=== PATIENT | female | born 1995 | race Caucasian/White ===

== ENCOUNTER → 2019-06-05 | Outpatient (CLI) | payer OTHER ==
--- NOTE | 2019-06-05 14:53 | CT ---
EXAMINATION TYPE: CT abdomen pelvis wo con DATE OF EXAM: 06/05/2019 COMPARISON: None HISTORY: 23-year-old female left flank pain CT DLP: 797 mGycm. Automated exposure control for dose reduction was used. TECHNIQUE: Contiguous axial scanning of the abdomen and pelvis without IV contrast. Coronal and sagit abel reconstructions performed. FINDINGS: Heart normal size without pericardial effusion. Lung bases clear without pleural effusion. Noncontrast appearance of the liver, adrenal glands, spleen, and pancreas show no gross abnormality. Cholecystectomy clips. No nephrolithiasis or hydronephrosis. No suspicious ureteral calculus is identified. No dilated small bowel, free fluid, or free air. No mesenteric or retroperitoneal lymphadenopathy. Some surgical material along the cecum suggest prior appendectomy. Correlate clinically. Moderate sto ol burden. Bladder is urine distended. An IUD is present. Both limbs of the IUD appear unusually positioned jordan cially the right-sided limb which extends anteriorly nearly to the serosal surface. The left limb is directed posteriorly with only 3 mm the intervening myometrium between the tip and serosal surface. B oth ovaries are visualized with prominent follicular change. No abnormal fluid collection. Some promi nent but nonenlarged inguinal lymph nodes measure up to 1.2 cm. Bones: No osseous destructive process. Mild degenerative disc disease L5-S1. IMPRESSION: 1. No nephrolithiasis or hydronephrosis. 2. An IUD is present. Both side arms of the IUD have unusual positioning. Consider pelvic ultrasound to further evaluate possible migration and perforation into the myometrium. 3. Moderate stool burden.
== END | disposition home or self-care (01) ==
LOC: RADCTMAIN 13:55
PROVIDERS: ATTEND Family Medicine
DX: R10.812 Left upper quadrant abdominal tenderness (principal); R10.9 Unspecified abdominal pain; Z97.5 Presence of (intrauterine) contraceptive device
CPT/HCPCS: 74176

== ENCOUNTER → 2019-11-21 | Outpatient (CLI) | payer OTHER ==
--- NOTE | 2019-11-21 14:04 | CT ---
EXAMINATION TYPE: CT soft tissue neck wo con DATE OF EXAM: 11/21/2019 COMPARISON: None. HISTORY: swelling and pain post dog bite [address] DLP: 308.3 mGycm Automated exposure control for dose reduction was used. FINDINGS: Lack of IV contrast exam suboptimal as limits ability to assess mucosal and 4 subcentimeter neck roselyn opathy. Airway grossly patent. Thyroid gland within normal limits. Lung apices clear. Parotid and submandibular glands are symmetric and thought within normal limits. Mild ill-defined fluid and fat stranding right submandibular level with [id number] adjacent sof t tissue swelling axial image 42 for reference. The left side. No well-formed fluid collection or abs cess is present. Nasal septum is deviated to right of midline. Paranasal sinuses are clear. Visualized portion of brain parenchyma is unremarkable. No acute facial bone fracture is seen. IMPRESSION: Mild inflammatory change right submandibular level without well-formed fluid collection o r drainable abscess. Airway noted patent.
== END | disposition home or self-care (01) ==
LOC: RADCTMAIN 13:30
PROVIDERS: ATTEND Family Medicine
DX: S01.83XD Puncture wound without foreign body of other part of head, subsequent encounter (principal); W54.0XXD Bitten by dog, subsequent encounter
CPT/HCPCS: 70490

== ENCOUNTER → 2020-08-21 | Outpatient (CLI) | payer BC ==
--- NOTE | 2020-08-21 12:54 | XR ---
EXAMINATION TYPE: XR lumbosacral spine min 4V DATE OF EXAM: 08/21/2020 CLINICAL HISTORY: pain COMPARISON: NONE TECHNIQUE: Frontal, lateral, and oblique images of the lumbar spine are obtained. FINDINGS: There are 5 lumbar type vertebral bodies identified. The lumbar spine shows satisfactory alignment without evidence of acute fracture or dislocation. Vertebral body heights are within normal limits. Disc spaces are well preserved. The overlying soft tissue appears unremarkable. IMPRESSION: No acute fracture or dislocation is seen in the lumbar spine.ICD 10 NO FRACTURE, INITIAL EVALUATION
--- NOTE | 2020-08-21 12:55 | XR ---
EXAMINATION TYPE: XR thoracic spine complete DATE OF EXAM: 08/21/2020 CLINICAL HISTORY: pain TECHNIQUE: Frontal, lateral, and swimmer's view of thoracic spine are obtained. COMPARISON: None. FINDINGS: Thoracic spine show satisfactory alignment without evidence of acute fracture or dislocatio n. Vertebral body heights are preserved. Disc spaces are well preserved. Visualized ribs are unrem arkable. IMPRESSION: No acute fracture or dislocation is seen in the thoracic spine. ICD 10 NO FRACTURE, INIT IAL EVALUATION
== END | disposition home or self-care (01) ==
LOC: RADXRMAIN 12:01
PROVIDERS: ATTEND Physician Assistant Medical
DX: M54.6 Pain in thoracic spine (principal); M54.42 Lumbago with sciatica, left side
CPT/HCPCS: 72072; 72110

== ENCOUNTER → 2020-09-21 | Outpatient (CLI) | payer BC ==
--- NOTE | 2020-09-21 14:29 | MR ---
EXAMINATION TYPE: MR lumbar spine wo con DATE OF EXAM: 09/21/2020 12:51 PM COMPARISON: NONE HISTORY: Back pain Multiplanar, MultiSpin echo imaging of the lumbar spine was performed. L1-L2: Normal disc appearance without desiccation. No herniation, protrusion or disc bulging. No ca nal stenosis is present. Foramina are patent bilaterally. L2-L3: Normal disc appearance without desiccation. No herniation, protrusion or disc bulging. No ca nal stenosis is present. Foramina are patent bilaterally. L3-L4: Normal disc appearance without desiccation. No herniation, protrusion or disc bulging. No ca nal stenosis is present. Foramina are patent bilaterally. L4-L5: Normal disc appearance without desiccation. No herniation, protrusion or disc bulging. No ca nal stenosis is present. Foramina are patent bilaterally. L5-S1: Normal disc appearance without desiccation. No herniation, protrusion or disc bulging. No ca nal stenosis is present. Foramina are patent bilaterally. Lumbar segments are intact. No paraspinal masses are identified. Conus medullaris has a normal appe arance. IMPRESSION: 1. Normal evaluation.
== END | disposition home or self-care (01) ==
LOC: RADMRIMAIN 12:08
PROVIDERS: ATTEND Physician Assistant Medical
DX: M54.42 Lumbago with sciatica, left side (principal)
CPT/HCPCS: 72148

== ENCOUNTER 2021-10-30 13:42 | Emergency (ER) | payer BC ==
[2021-10-30] MEDS ORDERED: HYDROmorphone 0.5 MG/0.5 ML SYRINGE IVP STA ×2 (13:53→15:17)
[2021-10-30] MEDS ORDERED: SODIUM CHLORIDE 0.9% 1,000 ML IV STA (13:53)
--- NOTE | 2021-10-30 13:58 | ED ---
General Adult HPI - General Chief complaint: Trauma Stated complaint: Kicked by horse Time Seen by Provider: 10/30/21 13:44 Source: patient, RN notes reviewed Mode of arrival: ambulatory Limitations: no limitations - History of Present Illness Initial comments: Patient is a pleasant 26-year-old female presenting to the emergency department following being kicked by a horse. Incident occurred prior to arrival, around 20-30 minutes. Patient was kicked in the epigastrium. Patient has waxing and waning discomfort that is moderate to severe in that area. Patient did have some chest discomfort and shortness of breath earlier however that has resolved. Patient does have moderately severe headache. Patient was kicked back around the. Patient did strike her head and believe she did lose consciousness for a short period of time. No weakness. No confusion or vomiting. Patient states she has an IUD and denies possible . - Related Data Allergies Allergy/AdvReac Type Severity Reaction Status Date / Time No Known Allergies Allergy Verified 10/30/21 13:46 Review of Systems ROS Statement: Those systems with pertinent positive or pertinent negative responses have been documented in the HPI. ROS Other: All systems not noted in ROS Statement are negative. Constitutional: Denies: fever Eyes: Denies: eye pain ENT: Denies: ear pain Respiratory: Reports: as per HPI. Denies: cough Cardiovascular: Reports: as per HPI Endocrine: Denies: fatigue Gastrointestinal: Reports: as per HPI, abdominal pain Genitourinary: Denies: dysuria Musculoskeletal: Reports: back pain (Upon exam patient amiss to having some back discomfort) Skin: Denies: rash Neurological: Reports: as per HPI, headache. Denies: weakness, numbness, paresthesias, confusion Past Medical History Past Medical History: No Reported History History of Any Multi-Drug Resistant Organisms: None Reported Past Surgical History: Appendectomy, Cholecystectomy Additional Past Surgical History / Comment(s): knee surgery Past Psychological History: No Psychological Hx Reported Smoking Status: Never smoker Past Alcohol Use History: None Reported Past Drug Use History: None Reported General Exam Limitations: no limitations General appearance: alert Head exam: Present: other (Mild abrasion right upper forehead) Eye exam: Present: normal appearance, PERRL, EOMI. Absent: nystagmus ENT exam: Present: normal oropharynx Neck exam: Present: normal inspection, tenderness (Mild tenderness upper and left lateral cervical spine) Respiratory exam: Present: normal lung sounds bilaterally, chest wall tenderness (Mild diffuse tenderness) Cardiovascular Exam: Present: regular rate, normal rhythm GI/Abdominal exam: Present: soft, tenderness (Abrasion and moderate tenderness epigastric), normal bowel sounds. Absent: guarding, rebound, rigid, pulsatile mass Extremities exam: Present: normal inspection, full ROM. Absent: tenderness Back exam: Present: tenderness (Mild tenderness mid thoracic spine, approximately T7 through 9) Neurological exam: Present: alert, oriented X3, CN II-XII intact. Absent: motor sensory deficit Expanded Neurological exam: Present: protecting the airway Speech: Present: fluid speech Sensory exam: Upper Extremity Light Touch: Normal, Lower Extremity Light Touch: Normal Motor strength exam: RUE: 5, LUE: 5, RLE: 5, LLE: 5 Eye Response: (4) open spontaneously Motor Response: (6) obeys commands Verbal Response: (5) oriented Psychiatric exam: Present: normal affect, normal mood Skin exam: Present: normal color Course Vital Signs 10/30/21 13:43 Temperature 98.2 F Pulse Rate 80 Respiratory 18 Rate Blood Pressure 135/67 O2 Sat by Pulse 100 Oximetry - Reevaluation(s) Reevaluation #1: 10/30/21 15:25 Patient reevaluated and resting comfortably in bed. Patient states headache has improved to 5/10. Patient states abdominal discomfort is also improved to 4/10. EKG Findings - EKG Comments: EKG Findings:: Sinus tachycardia at 103. MS 142. QRS 85. QT 341. QTC 401. Normal axis. Normal QRS. No acute ST change. Medical Decision Making - Medical Decision Making Case was also discussed with Dr. Borrero who did review the films. He was comfortable with discharge. Patient reevaluated and updated. Patient is comfortable with discharge well. - Lab Data Result diagrams: 10/30/21 14:06 10/30/21 14:06 Lab Results 10/30/21 10/30/21 10/30/21 Range/Units 14:00 14:06 14:06 WBC 14.2 H (3.8-10.6) k/uL RBC 5.13 (3.80-5.40) m/uL Hgb 15.3 (11.4-16.0) gm/dL Hct 47.5 H (34.0-46.0) % MCV 92.7 (80.0-100.0) fL MCH 29.8 (25.0-35.0) pg MCHC 32.1 (31.0-37.0) g/dL RDW 12.2 (11.5-15.5) % Plt Count 301 (150-450) k/uL MPV 8.5 Neutrophils % 69 % Lymphocytes % 22 % Monocytes % 5 % Eosinophils % 1 % Basophils % 1 % Neutrophils # 9.8 H (1.3-7.7) k/uL Lymphocytes # 3.2 (1.0-4.8) k/uL Monocytes # 0.8 (0-1.0) k/uL Eosinophils # 0.1 (0-0.7) k/uL Basophils # 0.1 (0-0.2) k/uL PT 9.6 (9.0-12.0) sec INR 0.9 (<1.2) APTT 24.9 (22.0-30.0) sec Sodium (137-145) mmol/L Potassium (3.5-5.1) mmol/L Chloride (98-107) mmol/L Carbon Dioxide (22-30) mmol/L Anion Gap mmol/L BUN (7-17) mg/dL Creatinine (0.52-1.04) mg/dL Est GFR (CKD-EPI)AfAm (>60 ml/min/1.73 sqM) Est GFR (CKD-EPI)NonAf (>60 ml/min/1.73 sqM) Glucose (74-99) mg/dL POC Glucose (mg/dL) (75-99) mg/dL POC Glu Planting Material Carrier ID Calcium (8.4-10.2) mg/dL Total Bilirubin (0.2-1.3) mg/dL AST (14-36) U/L ALT (4-34) U/L Alkaline Phosphatase (38-126) U/L Troponin I (0.000-0.034) ng/mL Total Protein (6.3-8.2) g/dL Albumin (3.5-5.0) g/dL Serum Alcohol mg/dL Blood Type A Positive Blood Type Confirm Blood Type Recheck No Previous Record Bld Type Recheck Status CABO Indicated Antibody Screen NEGATIVE Spec Expiration Date 11/02/202111/202110/30/21 10/30/21 10/30/21 Range/Units 14:06 14:06 14:17 WBC (3.8-10.6) k/uL RBC (3.80-5.40) m/uL Hgb (11.4-16.0) gm/dL Hct (34.0-46.0) % MCV (80.0-100.0) fL MCH (25.0-35.0) pg MCHC (31.0-37.0) g/dL RDW (11.5-15.5) % Plt Count (150-450) k/uL MPV Neutrophils % % Lymphocytes % % Monocytes % % Eosinophils % % Basophils % % Neutrophils # (1.3-7.7) k/uL Lymphocytes # (1.0-4.8) k/uL Monocytes # (0-1.0) k/uL Eosinophils # (0-0.7) k/uL Basophils # (0-0.2) k/uL PT (9.0-12.0) sec INR (<1.2) APTT (22.0-30.0) sec Sodium 138 (137-145) mmol/L Potassium 4.6 (3.5-5.1) mmol/L Chloride 105 (98-107) mmol/L Carbon Dioxide 24 (22-30) mmol/L Anion Gap 9 mmol/L BUN 15 (7-17) mg/dL Creatinine 0.60 (0.52-1.04) mg/dL Est GFR (CKD-EPI)AfAm >90 (>60 ml/min/1.73 sqM) Est GFR (CKD-EPI)NonAf >90 (>60 ml/min/1.73 sqM) Glucose 86 (74-99) mg/dL POC Glucose (mg/dL) (75-99) mg/dL POC Glu Planting Material Carrier ID Calcium 9.4 (8.4-10.2) mg/dL Total Bilirubin 0.7 (0.2-1.3) mg/dL AST 45 H (14-36) U/L ALT 35 H (4-34) U/L Alkaline Phosphatase 65 (38-126) U/L Troponin I 0.013 (0.000-0.034) ng/mL Total Protein 8.2 (6.3-8.2) g/dL Albumin 5.1 H (3.5-5.0) g/dL Serum Alcohol <10 mg/dL Blood Type Blood Type Confirm A Positive Blood Type Recheck Bld Type Recheck Status Antibody Screen Spec Expiration Date 10/30/21 Range/Units 14:29 WBC (3.8-10.6) k/uL RBC (3.80-5.40) m/uL Hgb (11.4-16.0) gm/dL Hct (34.0-46.0) % MCV (80.0-100.0) fL MCH (25.0-35.0) pg MCHC (31.0-37.0) g/dL RDW (11.5-15.5) % Plt Count (150-450) k/uL MPV Neutrophils % % Lymphocytes % % Monocytes % % Eosinophils % % Basophils % % Neutrophils # (1.3-7.7) k/uL Lymphocytes # (1.0-4.8) k/uL Monocytes # (0-1.0) k/uL Eosinophils # (0-0.7) k/uL Basophils # (0-0.2) k/uL PT (9.0-12.0) sec INR (<1.2) APTT (22.0-30.0) sec Sodium (137-145) mmol/L Potassium (3.5-5.1) mmol/L Chloride (98-107) mmol/L Carbon Dioxide (22-30) mmol/L Anion Gap mmol/L BUN (7-17) mg/dL Creatinine (0.52-1.04) mg/dL Est GFR (CKD-EPI)AfAm (>60 ml/min/1.73 sqM) Est GFR (CKD-EPI)NonAf (>60 ml/min/1.73 sqM) Glucose (74-99) mg/dL POC Glucose (mg/dL) 91 (75-99) mg/dL POC Glu Planting Material Carrier ID Arik Montelongo Calcium (8.4-10.2) mg/dL Total Bilirubin (0.2-1.3) mg/dL AST (14-36) U/L ALT (4-34) U/L Alkaline Phosphatase (38-126) U/L Troponin I (0.000-0.034) ng/mL Total Protein (6.3-8.2) g/dL Albumin (3.5-5.0) g/dL Serum Alcohol mg/dL Blood Type Blood Type Confirm Blood Type Recheck Bld Type Recheck Status Antibody Screen Spec Expiration Date - Radiology Data Radiology results: report reviewed (Computed tomography scan of the head and cervical spine as well as chest abdomen and pelvis reveals no acute process), image reviewed (Chest and pelvis x-ray shows no acute process) Critical Care Time Critical Care Time: Yes Total Critical Care Time: 31 Disposition Clinical Impression: Blunt abdominal trauma, Head injury, Concussion Disposition: HOME SELF-CARE Condition: Stable Instructions (If sedation given, give patient instructions): Blunt Abdominal Injury (ED), Head Injury (ED) Additional Instructions: Please do follow-up. Primary care physician in the next day or 2 for recheck. Limited activity for the next 2-3 days. Please return for confusion, persistent vomiting, weakness, uncontrolled pain, worsening symptoms or other concerns. Is patient prescribed a controlled substance at d/c from ED?: No Referrals: Morales Pham DO [Primary Care Provider] - 1-2 days Time of Disposition: 15:32
[2021-10-30 14:11] LABS: Basophils # (A) 0.1 k/uL (0-0.2); Basophils % (A) 1 %; Eosinophils # (A) 0.1 k/uL (0-0.7); Eosinophils % (A) 1 %; HCT 47.5 % (34.0-46.0); HGB 15.3 gm/dL (11.4-16.0); Lymphocytes # (A) 3.2 k/uL (1.0-4.8); Lymphocytes % (A) 22 %; MCH 29.8 pg (25.0-35.0); MCHC 32.1 g/dL (31.0-37.0); MCV 92.7 fL (80.0-100.0); Mean Platelet Volume 8.5; Monocytes # (A) 0.8 k/uL (0-1.0); Monocytes % (A) 5 %; Neutrophils # (A) 9.8 k/uL (1.3-7.7); Neutrophils % (A) 69 %; Platelet Count 301 k/uL (150-450); RBC 5.13 m/uL (3.80-5.40); RDW 12.2 % (11.5-15.5); WBC 14.2 k/uL (3.8-10.6)
[2021-10-30 14:21] LABS: ALT 35 U/L (4-34); African American GFR (CKD) >90 (>60 ml/min/1.73 sqM); Albumin 5.1 g/dL (3.5-5.0); Alcohol <10 mg/dL; Anion Gap 9 mmol/L; Blood Urea Nitrogen 15 mg/dL (7-17); Calcium 9.4 mg/dL (8.4-10.2); Carbon Dioxide 24 mmol/L (22-30); Chloride 105 mmol/L (98-107); Glucose 86 mg/dL (74-99); Non-African American GFR(CKD) >90 (>60 ml/min/1.73 sqM); Sodium 138 mmol/L (137-145); Total Bilirubin 0.7 mg/dL (0.2-1.3); Total Protein 8.2 g/dL (6.3-8.2)
[2021-10-30] MEDS ORDERED: ONDANSETRON 4 MG/2 ML VIAL IVP STA (14:22)
[2021-10-30 14:23] LABS: AST 45 U/L (14-36); Alkaline Phosphatase 65 U/L (38-126); Potassium 4.6 mmol/L (3.5-5.1)
[2021-10-30 14:26] LABS: INR 0.9 (<1.2); Partial Thromboplastin Time 24.9 sec (22.0-30.0); Prothrombin Time 9.6 sec (9.0-12.0)
[2021-10-30 14:36] LABS: Glucose,Whole Blood 91 mg/dL (75-99)
--- NOTE | 2021-10-30 14:42 | CT ---
EXAMINATION TYPE: CT brain cspine wo con DATE OF EXAM: 10/30/2021 COMPARISON: None HISTORY: Kicked by a horse CT DLP: 3506.7 mGycm Automated exposure control for dose reduction was used. Ventricles and sulci appear normal. There is no mass effect or midline shift. No sign of intracranial hemorrhage. Calvarium is intact. No evidence of cerebral edema. There is normal aeration of the mast oid sinuses. IMPRESSION: Normal unenhanced head CT scan
--- NOTE | 2021-10-30 14:57 | CT ---
EXAMINATION TYPE: CT ChestAbdPelvis w con DATE OF EXAM: 10/30/2021 COMPARISON: CT abdomen 06/05/2019 HISTORY: Kicked by a horse CT DLP: 3506.7 mGycm Automated exposure control for dose reduction was used. CONTRAST: Performed with IV Contrast, patient injected with 100 mL of Isovue 300. Images obtained from the thoracic inlet to the floor the pelvis with IV contrast. The lungs are clear of infiltrate. No pleural effusion or pneumothorax. Heart and mediastinum appear normal. Thoracic aorta is intact. No aneurysm. No mediastinal adenopathy. There are no hilar masses. There is no pericardial effusion. There are clips from cholecystectomy. Liver spleen and stomach pancreas appear intact. Bile ducts are not dilated. There is no adrenal mass. Kidneys show normal size and contour. There is no hydronephrosis. The urete rs are not dilated. There is no retroperitoneal adenopathy. Bladder distends smoothly. Uterus is ante verted. There is IUD on the right side of the uterine fundus. There is no pelvic mass. No free fluid in the pelvis. There are surgical clips probably from appendectomy. There is no mesenteric edema. No ascites or free air. No bowel obstruction. The thoracic and lumbar vertebra. Intact. No compression fracture. Sternum is intact. The bony pelvis appears intact. Hip joints appear normal. Sacroiliac joints appear normal. There is no evidence of a rib fracture. Visualized shoulder joints appear intact. IMPRESSION: Negative exam. No sign of traumatic injury of the chest abdomen pelvis.
--- NOTE | 2021-10-30 15:07 | XR ---
EXAMINATION TYPE: XR chest 1V portable DATE OF EXAM: 10/30/2021 COMPARISON: NONE HISTORY: Fall. Pain TECHNIQUE: Single view FINDINGS: Heart and mediastinum are normal. Lungs are clear. Diaphragm is normal. Bony thorax and sof t tissues appear normal. IMPRESSION: Normal chest.
--- NOTE | 2021-10-30 15:09 | XR ---
EXAMINATION TYPE: XR pelvis AP view DATE OF EXAM: 10/30/2021 COMPARISON: NONE HISTORY: Trauma. Pain TECHNIQUE: Single view FINDINGS: Pelvic ring is intact. Proximal femurs and hip joints appear normal. There is contrast in t he urinary bladder. Bladder appears intact. Sacroiliac joints appear normal. IMPRESSION: Normal pelvis.
[2021-10-30] MEDS ORDERED: traMADol 50 MG STARTER PACK 3 TAB BTL PO STA (15:32)
[2021-10-30] MEDS ORDERED: ONDANSETRON 4 MG ODT STARTER PACK 2 TAB BTL PO STA (15:32)
[2021-10-30 16:09] VITALS: BP 104/61; PULSE 64; RESP 14; TEMP 98.3
== END 2021-10-30 16:09 | disposition home or self-care (01) ==
LOC: EC 13:42
DX: S06.0X0A Concussion without loss of consciousness, initial encounter (principal); S39.91XA Unspecified injury of abdomen, initial encounter; R40.2412 Glasgow coma scale score 13-15, at arrival to emergency department; W55.12XA Struck by horse, initial encounter
CPT/HCPCS: 86900; 86901; 80053; 84484; 85025; 85610; 85730; 86850; 80320; 72170; 71045; 72125; 70450; 71260; 74177; 99291; 96374; 96375; 96361; 96376; J2405; J1170; Q9967; 36415